=== PATIENT | male | born 1975 ===

== ENCOUNTER 2017-10-26 10:27 | Emergency (ER) | payer OTHER ==
[2017-10-26 10:52] VITALS: BP 138/78
--- NOTE | 2017-10-26 12:06 | UC ---
Throat Pain/Nasal Benjamin HPI - HPI Summary HPI Summary: Pt presents with ST, sinus congestion, and left ear pain for the last week. He has not taken anything OTC. Denies fever, chills, SOB, chest pain, abdominal pain, N/V/D/C - History of Current Complaint Chief Complaint: UCRespiratory Stated Complaint: COLD COMPLAINT Time Seen by Provider: 10/26/17 12:05 Hx Obtained From: Patient Onset/Duration: Gradual Onset Severity: Moderate Pain Intensity: 5 Pain Scale Used: 0-10 Numeric - Allergies/Home Medications Allergies/Adverse Reactions: Allergies Allergy/AdvReac Type Severity Reaction Status Date / Time Aspirin Allergy Hives Verified 10/26/17 10:49 Penicillins Allergy Hives Verified 10/26/17 10:49 PMH/Surg Hx/FS Hx/Imm Hx Previously Healthy: Yes - Surgical History Surgical History: None - Social History Occupation: Employed Full-time Lives: With Family Alcohol Use: None Substance Use Type: None Smoking Status (MU): Never Smoked Tobacco Review of Systems Constitutional: Negative Skin: Negative Eyes: Negative ENT: Sore Throat, Ear Ache, Nasal Discharge, Sinus Congestion, Sinus Pain/ Tenderness Respiratory: Negative Cardiovascular: Negative Gastrointestinal: Negative All Other Systems Reviewed And Are Negative: Yes Physical Exam Triage Information Reviewed: Yes Appearance: Well-Appearing, Well-Nourished Vital Signs: Initial Vital Signs Temp 97.8 F 10/26/17 10:49 Pulse 78 10/26/17 10:49 Resp 18 10/26/17 10:49 BP 138/78 10/26/17 10:49 Pulse Ox 100 10/26/17 10:49 Vital Signs Reviewed: Yes Eyes: Positive: Conjunctiva Clear. Negative: Conjunctiva Inflamed, Discharge ENT: Positive: Hearing grossly normal, Pharynx normal, Nasal congestion, Nasal drainage, TM bulging - Right ear, TM red - Right ear, Sinus tenderness, Uvula midline. Negative: Pharyngeal erythema, Tonsillar swelling, Tonsillar exudate, Hoarse voice Neck: Positive: Supple, Nontender, No Lymphadenopathy Respiratory: Positive: Chest non-tender, Lungs clear, Normal breath sounds, No respiratory distress, No accessory muscle use Cardiovascular: Positive: RRR, No Murmur, Pulses Normal Neurological: Positive: Alert Psychological: Positive: Age Appropriate Behavior Skin: Negative: rashes Throat Pain/Nasal Course/Dx - Course Course Of Treatment: Right ear otitis media. Sinusitis - Differential Dx/Diagnosis Differential Diagnosis/HQI/PQRI: Otitis Media, Pharyngitis, Sinusitis, Tonsillitis, URI Provider Diagnoses: Right ear otitis media. Sinusitis. Sore throat Discharge - Discharge Plan Condition: Stable Disposition: HOME Prescriptions: Azithromycin TAB* [Zithromax TAB (Z-DONYA) 250 mg #6 tabs] 2 tab PO .TODAY, THEN 1 DAILY #1 donya Patient Education Materials: Sinusitis (ED) Referrals: Cristofer Christensen MD [Primary Care Provider] - Additional Instructions: If you develop a fever, shortness of breath, chest pain, new or worsening symptoms - please call your PCP or go to the ED. Your blood pressure was mildly elevated at todays visit. Please see your primary provider within 4 weeks for recheck and re-evaluation.
== END 2017-10-26 12:54 | disposition home or self-care (01) ==
LOC: UCEAST 10:27
DX: H66.91 Otitis media, unspecified, right ear (principal); J32.9 Chronic sinusitis, unspecified; Z88.0 Allergy status to penicillin; Z88.6 Allergy status to analgesic agent
CPT/HCPCS: 99212; G0463